=== PATIENT | male | born 1990 | race Caucasian/White ===

== ENCOUNTER 2019-01-04 10:39 | Emergency (ER) | payer OTHER, MEDICAID, SELFPAY ==
[2019-01-04 10:54] VITALS: BP 121/86; PULSE 78; RESP 15; TEMP 36.7; O2SAT 100; BMI 22.1
--- NOTE | 2019-01-04 10:55 | DI.RAD.S_ITS ---
PROCEDURE: XR FINGER RT MIN 2V INDICATIONS: pain in right 1st digit TECHNIQUE: AP hand, 2 views of the thumb finger(s) acquired. COMPARISON: None. FINDINGS: Bones: No fractures or dislocations. No suspicious bony lesions. Soft tissues: No suspicious soft tissue calcifications. IMPRESSION: Right thumb without acute radiographic abnormalities. Dictated by: Amadeo Brown M.D. on 01/04/2019 at 11:06 Approved by: Amadeo Brown M.D. on 01/04/2019 at 11:07
== END 2019-01-04 14:17 | disposition left against medical advice (07) ==
PROVIDERS: Emergency Provider Emergency Medicine
DX: S69.91XA Unspecified injury of right wrist, hand and finger(s), initial encounter (principal)
CPT/HCPCS: 73140; 99282

== ENCOUNTER 2019-01-14 15:40 | Emergency (ER) | payer OTHER, MEDICAID, SELFPAY ==
[2019-01-14 15:48] VITALS: BP 120/81; PULSE 98; RESP 18; TEMP 36.5; O2SAT 94; BMI 22.1
--- NOTE | 2019-01-14 15:52 | DI.RAD.S_ITS ---
PROCEDURE: XR HAND RT MIN 3V INDICATIONS: increasing pain after injury TECHNIQUE: 3 views of the hand(s) acquired. COMPARISON: None. FINDINGS: Bones: No fractures or dislocations. Carpal bones are normally aligned. No suspicious bony lesions. Soft tissues: No suspicious soft tissue calcifications. IMPRESSION: No fracture or dislocation. Dictated by: Yissel Jacinto M.D. on 01/14/2019 at 17:26 Approved by: Yissel Jacinto M.D. on 01/14/2019 at 17:27
--- NOTE | 2019-01-14 16:29 | PC.NURSE ---
pt reports, right base of thumb pain for one month, now with severe pain, burning, attempt to apply splint, pt reports, worsening pain , when thumb is extended. states, had used ice pack/hot without relief. with full rom, dcms intact.
--- NOTE | 2019-01-14 16:31 | ED_ITS ---
HPI - Extremity Injury (Upper) General Chief Complaint: Extremity Injury, Upper Stated Complaint: INJURED R HAND Time Seen by Provider: 01/14/19 16:09 Source: patient Mode of arrival: ambulatory Limitations: no limitations History of Present Illness HPI narrative: Patient is a 28-year-old man who presents with right thumb pain. He is unsure exactly what he did a few weeks ago however the pain is getting worse. His right thenar eminence hurts every time he opposes his thumb. He is able to flex and extend. No pain over the scaphoid no swelling. He has been taking ibuprofen throughout the relief. Today he put Eren wrap on see if it would help ease it just overall getting worse. Related Data Previous Rx's Medication Instructions Recorded meloxicam 7.5 mg PO DAILY PRN #20 tab 01/14/19 Allergies Allergy/AdvReac Type Severity Reaction Status Date / Time No Known Drug Allergies Allergy Verified 01/04/19 10:54 Review of Systems Review of Systems GENERAL: Denies chills,fever HEENT: Denies throat pain RESPIRATORY: Denies dyspnea, cough, wheezing CARDIOVASCULAR: Denies chest pain, palpitations GASTROINTESTINAL: Denies nausea, vomiting MUSCULOSKELETAL: See HPI SKIN: No rash, no laceration, no pruritus NEUROLOGIC: Denies weakness, dizziness, headache, numbness 8 point review of systems is negative except for those stated above and HPI [facility] Medical History Patient denies significant medical history (Acute) Social History Smoking Status: Current every day smoker Social History Smoking Status: Current every day smoker Exam Initial Vital Signs Initial Vital Signs: Vital Signs Temperature 97.7 F 01/14/19 15:48 Pulse Rate 98 H 01/14/19 15:48 Respiratory Rate 18 01/14/19 15:48 Blood Pressure 120/81 01/14/19 15:48 Pulse Oximetry 94 01/14/19 15:48 GENERAL: Well-appearing, well-nourished and in no acute distress. CARDIOVASCULAR: peripheral pulses in tact, cap refill <2 sec RESPIRATORY: No respiratory distress, speaks in full sentences without difficulty EXTREMITIES: Normal range of motion, no clubbing or edema. Neurovascularly intact Right hand pain right at the thenar eminence no swelling no deformity. Pain with opposition to pinky however he is able to do all the other fingers. No pain on scaphoid with resistance sensation between thumb and index finger intact. NEUROLOGICAL: Cranial nerves II through XII grossly intact. Normal gait and speech. SKIN: Warm, dry, no petechiae, no rashes or lesions. Course Orders Ordered: ED Orders 01/14/19 15:52 XR hand RT min 3V Stat Vital Signs - 8 hr 01/14/19 15:48 Temperature 97.7 F Pulse Rate 98 H Respiratory Rate 18 Blood Pressure 120/81 Pulse Oximetry 94 MDM - Extremity Injury (Upper) Imaging Data Right hand x-ray: Radiologist's impression: PROCEDURE: XR HAND RT MIN 3V INDICATIONS: increasing pain after injury TECHNIQUE: 3 views of the hand(s) acquired. COMPARISON: None. FINDINGS: Bones: No fractures or dislocations. Carpal bones are normally aligned. No suspicious bony lesions. Soft tissues: No suspicious soft tissue calcifications. IMPRESSION: No fracture or dislocation. Dictated by: Yissel Jacinto M.D. on 01/14/2019 at 17:26 Discharge Plan Departure Patient Disposition: Home Clinical Impression: Strain of extensor muscle, fascia and tendon of right thumb at wrist and hand level, initial encounter Instructions: Forearm Muscle Strain Activity Restrictions/Additional Instructions: *You have been diagnosed with right thumb strain *What to do: Recommend wearing a specific thumb splint while active during the day. If is still having pain in 1-2 weeks may require outpatient MRI that. This be arranged with your PCP *Continue to take medications as directed Meloxicam 7.5 mg once a day with food, do not combine with any other NSAID such as naproxen, Aleve, Advil, ibuprofen, Motrin etc *Follow up with your primary care provider in 2-3 days *Return to ER if you should have increasing weakness, numbness, or any new, worsening or concerning symptoms Prescriptions: New meloxicam 7.5 mg tablet 7.5 mg PO DAILY PRN (Reason: pain) Qty: 20 RF: 0 Referrals: [facility] [Provider Group] [facility] [Provider Group]
--- NOTE | 2019-01-14 17:59 | PC.NURSE ---
called pt , states, he had to drop off his daughter in [place], will return to [facility] the rx tomorrow at 11am.
--- NOTE | 2019-01-15 19:28 | PC.NURSE ---
pt didnt return for his rx today.
== END 2019-01-14 18:00 | disposition home or self-care (01) ==
PROVIDERS: Emergency Provider Emergency Medicine
DX: S66.211A Strain of extensor muscle, fascia and tendon of right thumb at wrist and hand level, initial encounter (principal)
CPT/HCPCS: 73130; 99283

== ENCOUNTER 2022-05-06 22:01 | Emergency (ER) | payer OTHER, MEDICAID, SELFPAY ==
[2022-05-06 22:08] VITALS: BP 120/70; PULSE 94; RESP 21; TEMP 36.4; O2SAT 100; BMI 22.1
[2022-05-06 22:16] VITALS: PULSE 87; RESP 15; O2SAT 100
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
[2022-05-06 22:24] LABS: Add Manual Diff / Slide Review NO; Basophils Absolute Auto 100 /uL (0-100); Basophils Percent Auto 0.8 % (0-2); Eosinophils Absolute Auto 100 /uL (0-450); Eosinophils Percent Auto 1.2 % (2-4); Hematocrit 43.3 % (41-53); Hemoglobin 14.5 g/dL (13.5-17.5); Lymphocytes Absolute Auto 2200 /uL (1100-4500); Mean Corpuscular HGB Conc 33.5 % (30-36); Mean Corpuscular Hemoglobin 29.1 PG (26-34); Mean Corpuscular Volume 87.1 fL (80-100); Monocytes Absolute Auto 700 /uL (0-900); Monocytes Percent Auto 8.5 % (3-14); Neutrophils Absolute Auto 5200 /uL (1500-7000); Neutrophils Percent Auto 62.5 % (50-75); Platelet Count 332 X10^3/uL (150-400); Red Blood Cell Count 4.97 X10^6/uL (4.5-5.9); Red Cell Distribution Width 13.6 % (11.6-14.8); White Blood Cell Count 8.3 X10^3/uL (4.5-11.0)
[2022-05-06 22:30] VITALS: BP 112/66; PULSE 81; RESP 16; O2SAT 100
[2022-05-06 22:32] LABS: Alanine Aminotransferase 25 IU/L (<50); Albumin 4.7 g/dL (3.5-5.0); Albumin Globulin Ratio 1.6 (1.0-2.8); Alkaline Phosphatase 77 U/L (38-126); Aspartate Aminotransferase 35 IU/L (17-59); BUN Creatinine Ratio 15.5 (6-22); Bilirubin Total 0.9 mg/dL (0.2-1.3); Blood Urea Nitrogen 16 mg/dL (9-20); Calcium 9.3 mg/dL (8.4-10.2); Carbon Dioxide 32 mmol/L (22-32); Chloride 96 mmol/L (98-107); Estimated Glomerular Filt Rate > 60 mL/min (>60); Ethanol (ETOH) < 10 mg/dL; Globulin 2.9 g/dL (1.7-4.1); Glucose 92 mg/dL (70-100); HEMOLYSIS < 15 (0-50); Lipase 118 U/L (23-300); Potassium 3.9 mmol/L (3.4-5.1); Sodium 140 mmol/L (137-145); Total Protein 7.6 g/dL (6.3-8.2)
[2022-05-06 23:00] VITALS: BP 115/64; PULSE 78; RESP 13; O2SAT 99
[2022-05-06 23:30] VITALS: BP 109/62; PULSE 71; RESP 13; O2SAT 99
[2022-05-07] VITALS: BP 121/77; PULSE 89; RESP 16; O2SAT 99
== END 2022-05-07 00:24 | disposition home or self-care (01) ==
PROVIDERS: Emergency Provider Emergency Medicine
DX: S92.341A Displaced fracture of fourth metatarsal bone, right foot, initial encounter for closed fracture (principal); S80.12XA Contusion of left lower leg, initial encounter; V03.10XA Pedestrian on foot injured in collision with car, pick-up truck or van in traffic accident, initial encounter
CPT/HCPCS: 36415; 73562; 73590; 73610; 73630; 80053; 80320; 83690; 85025; 99284